=== PATIENT | male | born 1995 | race Caucasian/White ===

== ENCOUNTER 2018-01-23 10:28 | Emergency (ER) | payer SELFPAY | END 2018-01-23 11:24 | disposition left against medical advice (07) | LOC: ER 10:35 | DX: Z53.21 Procedure and treatment not carried out due to patient leaving prior to being seen by health care provider (principal) ==

== ENCOUNTER 2018-01-23 12:50 | Emergency (ER) | payer SELFPAY ==
[~2018-01-23] VITALS: Ht 198.1 cm; Wt 74.0 kg
[2018-01-23] MEDS ORDERED: LIDOCAINE HCL 1% 20ML VIAL (Pyxis) INJ INFIL ONE (15:15)
[2018-01-23] MEDS ORDERED: SODIUM CHLORIDE 0.9% INJ 3ML FLUSH IVF ONE (15:15)
[2018-01-23] MEDS ORDERED: BACITRACIN ZINC OINT UDPKT TOP ONE (16:30)
[2018-01-23] MEDS ORDERED: CEPHALEXIN 500MG CAPSULE PO ONE (16:30)
[2018-01-23 16:39] VITALS: BP 156/87
== END 2018-01-23 16:48 | disposition home or self-care (01) ==
LOC: ER 15:43
DX: S61.214A Laceration without foreign body of right ring finger without damage to nail, initial encounter (principal); S01.111A Laceration without foreign body of right eyelid and periocular area, initial encounter; W45.8XXA Other foreign body or object entering through skin, initial encounter; Y93.89 Activity, other specified; Y92.89 Other specified places as the place of occurrence of the external cause; F12.90 Cannabis use, unspecified, uncomplicated
CPT/HCPCS: 12001; 73130; 96360; 99284; J3490; Z7610

== ENCOUNTER 2019-08-10 16:31 | Emergency (ER) | payer SELFPAY ==
[~2019-08-10] VITALS: Ht 185.4 cm; Wt 72.0 kg
[2019-08-10] MEDS ORDERED: BACITRACIN ZINC OINT UDPKT TOP ONE (18:15)
[2019-08-10] MEDS ORDERED: LIDOCAINE 1%/EPI 1:100,000 10 ML VIAL IJ ONE (18:15)
[2019-08-10] MEDS ORDERED: LIDOCAINE HCL/EPINEPHRINE 1%-EPI 1:100,000 20 ML VIAL INFIL SCH (18:30)
[2019-08-10 20:16] VITALS: BP 113/70
== END 2019-08-10 20:21 | disposition home or self-care (01) ==
LOC: ER 17:05
DX: L03.317 Cellulitis of buttock (principal); L02.31 Cutaneous abscess of buttock; R03.0 Elevated blood-pressure reading, without diagnosis of hypertension; F17.210 Nicotine dependence, cigarettes, uncomplicated; F12.90 Cannabis use, unspecified, uncomplicated
CPT/HCPCS: 10060; 99283; J3490

== ENCOUNTER 2019-08-14 14:04 | Emergency (ER) | payer SELFPAY ==
[~2019-08-14] VITALS: Ht 180.3 cm; Wt 74.0 kg
[2019-08-14 14:06] VITALS: BP 171/106
== END 2019-08-14 15:16 | disposition home or self-care (01) ==
LOC: ER 14:04
DX: Z48.00 Encounter for change or removal of nonsurgical wound dressing (principal); L02.31 Cutaneous abscess of buttock; R03.0 Elevated blood-pressure reading, without diagnosis of hypertension
CPT/HCPCS: 99281

== ENCOUNTER 2020-03-17 00:01 | Emergency (ER) | payer MEDICAID ==
[~2020-03-17] VITALS: Ht 182.9 cm; Wt 71.5 kg
[2020-03-17 00:07] VITALS: BP 136/91
== END 2020-03-17 01:40 | disposition home or self-care (01) ==
LOC: ER 00:01
DX: S40.212A Abrasion of left shoulder, initial encounter (principal); S09.90XA Unspecified injury of head, initial encounter; F12.10 Cannabis abuse, uncomplicated; W18.39XA Other fall on same level, initial encounter; Y93.89 Activity, other specified; Y92.89 Other specified places as the place of occurrence of the external cause; Y99.8 Other external cause status
CPT/HCPCS: 99284

== ENCOUNTER 2024-06-09 00:24 | Emergency (ER) | payer SELFPAY ==
[~2024-06-09] VITALS: Ht 185.4 cm; Wt 87.0 kg
[2024-06-09 00:43] VITALS: O2SAT 100
[2024-06-09] MEDS: TETANUS, DIPHTHERIA, PERTUSSIS VAC/PF 0.5ML (>10YR OLD) IM ONE (01:49)
[2024-06-09] MEDS: LIDOCAINE HCL/PF 1% 10 MG/ML 5ML VIAL INFIL ONE (01:49)
[2024-06-09] MEDS ORDERED: CEPH500C2 MT (02:31)
[2024-06-09] MEDS ORDERED: SULF1TAB48 MT (02:31)
[2024-06-09 02:50] VITALS: BP 135/86; PULSE 96; RESP 16; TEMP 98.4
== END 2024-06-09 02:51 | disposition home or self-care (01) ==
LOC: ER 00:44
DX: L02.412 Cutaneous abscess of left axilla (principal); F12.10 Cannabis abuse, uncomplicated
CPT/HCPCS: 90715; 90471; 99283; J3490; Z7610 ×4

== ENCOUNTER 2024-10-10 13:16 | Emergency (ER) | payer MEDICAID ==
[~2024-10-10] VITALS: Ht 190.5 cm; Wt 100.0 kg
[~2024-10-10 13:16] MED LIST: CEPH500C2 MT; SULF1TAB48 MT
[2024-10-10 13:30] VITALS: O2SAT 99
[2024-10-10] MEDS ORDERED: SULF1TAB48 MT (15:45)
[2024-10-10] MEDS: IBUPROFEN 400MG TABLET PO ONE (16:34)
[2024-10-10] MEDS: ACETAMINOPHEN 325MG TABLET PO ONE (16:34)
[2024-10-10 16:57] VITALS: BP 140/85; PULSE 98; RESP 18; TEMP 37.16964; O2SAT 98
== END 2024-10-10 16:59 | disposition home or self-care (01) ==
LOC: ER 13:16
DX: K65.1 Peritoneal abscess (principal); F12.10 Cannabis abuse, uncomplicated; R00.0 Tachycardia, unspecified
CPT/HCPCS: 99283